=== PATIENT | male | born 1980 | race Hispanic/Latino ===

== ENCOUNTER 2018-03-24 01:54 | Observation (INO) | payer SELFPAY ==
[2018-03-24] VITALS (23 sets, daily range): BP systolic 109–139; BP diastolic 68–99
[~2018-03-24] VITALS: Ht 182.9 cm; Wt 112.7 kg
[2018-03-24 02:27] LABS: APPEARANCE,URINE Clear (CLEAR); BILIRUBIN,URINE Negative (NEGATIVE); COLOR,URINE Yellow (YELLOW); GLUCOSE, URINE (UA) Negative (NEGATIVE); KETONES,URINE Negative (NEGATIVE); LEUKOCYTE ESTERASE ,URINE Negative (NEGATIVE); NITRATE,URINE Negative (NEGATIVE); OCCULT BLOOD,URINE Negative (NEGATIVE); PH,URINE 5.5 (5.0-8.0); PROTEIN,URINE Negative (NEGATIVE)
[2018-03-24 02:34] LABS: AMPHET/METH SCREEN,URINE NEGATIVE (NEGATIVE); BARBITURATE SCREEN, URINE NEGATIVE (NEGATIVE); BENZODIAZEPINES SCREEN,URINE NEGATIVE (NEGATIVE); CANNABINOID SCREEN,URINE NEGATIVE (NEGATIVE); COCAINE SCREEN,URINE NEGATIVE (NEGATIVE); OPIATE SCREEN,URINE NEGATIVE (NEGATIVE); PHENCYCLIDINE SCREEN,URINE NEGATIVE (NEGATIVE)
[2018-03-24 02:40] LABS: BASOPHILS % (AUTO) 1.4 % (0.0-5.0); EOSINOPHILS % (AUTO) 0.9 % (0.0-8.0); HEMATOCRIT 48.9 % (42-54); MEAN CORPUSCULAR HEMOGLOBIN 31.1 pg (27.0-33.0); MEAN CORPUSCULAR HGB CONC 33.3 g/dL (32.0-36.0); MEAN CORPUSCULAR VOLUME 93.2 fL (79-99); MONOCYTES % (AUTO) 0.6 % (3.0-13.0); NEUTROPHILS % (AUTO) 90.1 % (40.0-77.0); NUCLEATED RED BLOOD CELLS 0.1 % (0.0-0.19); PLATELET COUNT (AUTO) 204 K/uL (130-400); RED BLOOD CELL COUNT(AUTO) 5.25 MIL/uL (4.50-6.20); RED CELL DISTRIBUTION WIDTH 13.2 % (11.0-15.5); WHITE BLOOD COUNT (AUTO) 6.9 K/uL (4.8-10.8)
[2018-03-24 02:46] LABS: CREATININE 1.2 mg/dL (0.5-1.5); POTASSIUM 3.5 mmol/L (3.5-5.1)
[2018-03-24 02:53] LABS: ALBUMIN 3.4 g/dL (3.5-5.0); BILIRUBIN,TOTAL 0.6 mg/dL (0.2-1.0); TOTAL PROTEIN, SERUM 6.7 g/dL (6.0-8.3)
[2018-03-24 03:25] LABS: AMYLASE 35 U/L (25-115); LIPASE 95 U/L (114-286)
[2018-03-24 03:37] LABS: PLATELET MORPHOLOGY PLT CLUMPS PRESENT
[2018-03-24] MEDS ORDERED: SODIUM CHLORIDE 0.9% 1000ML 1,000 ML IV ONE (04:23)
[2018-03-24] MEDS ORDERED: ACETAMINOPHEN EXTRA STRENGTH 500 MG TABLET ONE (04:23)
[2018-03-24] MEDS ORDERED: ONDANSETRON HCL 4 MG/2 ML VIAL IVP PRN (06:30)
[2018-03-24] MEDS ORDERED: LACTATED RINGERS 1000ML 1,000 ML IV SCH (06:30)
[2018-03-24] MEDS ORDERED: LIDOCAINE PF 2% 5ML ABBOJECT ONE (11:28)
[2018-03-24] MEDS ORDERED: DEXAMETHASONE SOD PHOSPHATE 10MG/ML 1ML VIAL ONE (11:28)
[2018-03-24] MEDS ORDERED: ONDANSETRON HCL 4 MG/2 ML VIAL ONE (11:29)
[2018-03-24] MEDS ORDERED: MIDAZOLAM HCL 1 MG/ML 2ML VIAL ONE (11:29)
[2018-03-24] MEDS ORDERED: GLYCOPYRROLATE 1 MG/5 ML SYRINGE ONE (11:29)
[2018-03-24] MEDS ORDERED: NEOSTIGMINE 5MG/5ML SYR IV ONE (11:29)
[2018-03-24] MEDS ORDERED: ROCURONIUM 10MG/1ML SYR 10 MG/ML ML ONE (11:30)
[2018-03-24] MEDS ORDERED: FENTANYL CITRATE PF 50 MCG/1 ML 2ML VIAL ONE ×3 (11:30→12:30)
[2018-03-24] MEDS ORDERED: PROPOFOL 10 MG/ML 20ML VIAL IV ONE ×2 (11:30→12:07)
[2018-03-24] MEDS ORDERED: BUPIVACAINE/PF 0.25% 30ML VIAL IJ ONE (11:38)
[2018-03-24] MEDS ORDERED: CEFOXITIN SODIUM 2 GM VIAL ONE (11:49)
[2018-03-24] MEDS ORDERED: ESMOLOL HCL 10 MG/ML 10 ML VIAL ONE (11:55)
[2018-03-24] MEDS: LACTATED RINGERS 1000ML 1,000 ML IV SCH ×2 (12:38→21:40)
[2018-03-24] MEDS: CEFOXITIN SODIUM 1 GM VIAL IVP SCH ×3 (12:45→18:02)
[2018-03-24] MEDS ORDERED: ACETAMINOPHEN-CODEINE 300/30MG TAB PO PRN (12:45)
[2018-03-24] MEDS ORDERED: IPRATROPIUM/ALBUTEROL SULFATE 3 ML SOLUTION IH ONE (12:53)
[2018-03-24] MEDS ORDERED: KETOROLAC TROMETHAMINE 30MG/ML ONE (13:15)
[2018-03-24] MEDS: MORPHINE SULFATE 2 MG/ML 1ML SYG IVP PRN ×2 (14:08→17:59)
[2018-03-25] VITALS: BP 120/69
[2018-03-25] MEDS: CEFOXITIN SODIUM 1 GM VIAL IVP SCH ×2 (00:17→05:53)
[2018-03-25] MEDS: LACTATED RINGERS 1000ML 1,000 ML IV SCH (00:48)
[2018-03-25 04:00] VITALS: BP 134/64
[2018-03-25 07:00] VITALS: BP 111/78
[2018-03-25] MEDS ORDERED: ACET1TAB12 PO (10:57)
== END 2018-03-25 12:14 | disposition home or self-care (01) ==
LOC: EDH 01:54 → EDHIP 01:55 → UNDOADMOB 04:54 → 3AH 05:15
PROVIDERS: ADMIT Surgery; ATTEND Surgery
DX: K35.80 Unspecified acute appendicitis (principal); R42 Dizziness and giddiness; R06.02 Shortness of breath; R07.89 Other chest pain
CPT/HCPCS: 36415; 44950; 71045; 74176; 80053; 80305; 81003; 82150; 82550; 83690; 84484; 85025; 87804 ×2; 88304; 93005; 94640; 96374; 96375; 96376 ×2; 99284; A4218 ×3; A4450; A4452; A4510; A4600; A4930; G0378 ×34; J0694 ×4; J1100; J1885; J2001; J2250; J2405 ×2; J2704 ×2; J2710; J3010 ×3; J3490 ×3; J7030; J7120 ×3